=== PATIENT | male | born 1945 | race Caucasian/White ===

== ENCOUNTER 2021-02-27 10:07 | Outpatient (CLI) | payer MEDICARE, OTHER | END 2021-02-27 10:08 | disposition home or self-care (01) | LOC: CSHCT 10:07 | PROVIDERS: ATTEND Family Medicine | DX: G44.52 New daily persistent headache (NDPH) (principal); R93.0 Abnormal findings on diagnostic imaging of skull and head, not elsewhere classified | CPT/HCPCS: 70450 ==